=== PATIENT | female | born 1955 | race Caucasian/White ===

== ENCOUNTER 2017-09-03 10:48 | Inpatient (IN) | payer OTHER ==
[~2017-09-03] VITALS: Ht 170.2 cm; Wt 60.1 kg
[~2017-09-03 10:48] MED LIST: ALBU8.5H8 INH; ALPR0.254 PO; FLUT1AER INH; GUAI200T3 PO; IPRA4AER IH; LEVO500T47 PO; METH4TAB6 PO; OLME1TAB25 PO; PRED20TA PO
[2017-09-03] MEDS ORDERED: SODIUM CHLORIDE FLUSH 10ML SYR IVF ONE (11:30)
[2017-09-03 11:38] LABS: BASOPHILS # (AUTO) 0.03 x10^3/uL (0-0.1); BASOPHILS % (AUTO) 0 % (0-1); EOSINOPHILS # (AUTO) 0.02 x10^3/uL (0-0.4); EOSINOPHILS % (AUTO) 0 % (1-7); LYMPHOCYTES # (AUTO) 0.68 x10^3/uL (1-3.4); LYMPHOCYTES % (AUTO) 6 % (22-44); MD NO; MEAN CORPUSCULAR HEMOGLOBIN 34.6 pg (27.0-34.8); MEAN CORPUSCULAR HGB CONC 34.3 g/dL (32.4-35.8); MEAN CORPUSCULAR VOLUME 100.9 fL (80-100); MEAN PLATELET VOLUME 7.3 fL (7.4-10.4); MONOCYTES # (AUTO) 0.92 x10^3/uL (0.2-0.8); MONOCYTES % (AUTO) 9 % (2-9); NEUTROPHILS # (AUTO) 9.01 x10^3/uL (1.8-6.8); NEUTROPHILS % (AUTO) 85 % (42-75); PLATELET COUNT 309 x10^3/uL (130-400); RED BLOOD COUNT 4.37 x10^6/uL (3.82-5.3); RED CELL DISTRIBUTION WIDTH 12.6 % (9.6-15.2)
[2017-09-03] MEDS ORDERED: ALBUTEROL/IPRATROPIUM 2.5MG/0.5MG, 3 ML ONE ×2 (11:40→14:03)
[2017-09-03] MEDS ORDERED: ALBU18HF INH (11:46)
[2017-09-03 11:47] LABS: CALCIUM 8.5 mg/dL (8.5-10.1); CHLORIDE 87 mmol/L (98-107)
[2017-09-03] MEDS ORDERED: OLME1TAB25 PO (11:47)
[2017-09-03] MEDS ORDERED: FLUO20CA8 PO (11:50)
[2017-09-03 11:53] LABS: ALANINE AMINOTRANSFERASE 19 U/L (12-78); ALKALINE PHOSPHATASE 79 U/L (45-117); ANION GAP 5 mmol/L (5-15); BILIRUBIN,TOTAL 0.8 mg/dL (0.2-1.0); CREATININE 0.41 mg/dL (0.55-1.02); TOTAL PROTEIN 7.1 g/dL (6.4-8.2); TROPONIN I < 0.015 ng/mL (0.000-0.045)
[2017-09-03] MEDS ORDERED: LABETALOL 5MG/ML, 20ML IVPush PRN (13:30)
[2017-09-03] MEDS ORDERED: ONDANSETRON ODT 4 MG PO PRN (13:30)
[2017-09-03] MEDS ORDERED: POLYETHYLENE GLYCOL 17 GM PACKET PO PRN (13:30)
[2017-09-03] MEDS ORDERED: ONDANSETRON 2MG/ML, 2ML IVPush PRN (13:30)
[2017-09-03 13:58] LABS: PARTIAL THROMBOPLASTIN TIME 32 Seconds (25-31); PROTHROMBIN TIME 10.3 Seconds (9.6-11.5)
[2017-09-03] MEDS ORDERED: ALBUTEROL SULFATE 2.5 MG/3 ML HHN PRN (14:00)
[2017-09-03 14:01] LABS: D-DIMER < 0.19 ug/mlFEU (0.00-0.52)
[2017-09-03 14:20] LABS: FOLATE LEVEL 11.1 ng/mL (3.1-17.5); FREE T4 (FREE THYROXINE) 1.36 ng/dL (0.76-1.46); THYROID STIMULATING HORMONE 0.802 mIU/L (0.358-3.740)
[2017-09-03 14:21] VITALS: BP 129/65
[2017-09-03] MEDS: SODIUM CHLORIDE 0.9% 1,000 ML IV SCH ×2 (14:47→22:52)
[2017-09-03] MEDS: methylPREDNISolone SOD SUCC 125 MG/2 ML IVPush SCH ×2 (14:48→20:03)
[2017-09-03] MEDS: DOXYCYCLINE 100MG TABLET PO SCH ×2 (14:48→20:03)
[2017-09-03] MEDS: ENOXAPARIN 40 MG/0.4 ML SQ SCH (14:49)
[2017-09-03 19:00] VITALS: BP 112/60
[2017-09-03] MEDS: ALBUTEROL/IPRATROPIUM 2.5MG/0.5MG, 3 ML NPPB SCH (20:00)
[2017-09-03] MEDS: NICOTINE 21 MG/24 HR PATCH.TD24 TD SCH (20:03)
[2017-09-04 01:05] VITALS: BP 150/73
[2017-09-04] MEDS: methylPREDNISolone SOD SUCC 125 MG/2 ML IVPush SCH ×4 (01:45→19:46)
[2017-09-04 06:03] LABS: BASOPHILS % (AUTO) 0 % (0-1); EOSINOPHILS % (AUTO) 0 % (1-7); LYMPHOCYTES # (AUTO) 0.21 x10^3/uL (1-3.4); LYMPHOCYTES % (AUTO) 9 % (22-44); MD NO; MEAN CORPUSCULAR HEMOGLOBIN 33.8 pg (27.0-34.8); MEAN CORPUSCULAR HGB CONC 33.5 g/dL (32.4-35.8); MEAN CORPUSCULAR VOLUME 100.6 fL (80-100); MEAN PLATELET VOLUME 7.5 fL (7.4-10.4); MONOCYTES # (AUTO) 0.09 x10^3/uL (0.2-0.8); MONOCYTES % (AUTO) 4 % (2-9); NEUTROPHILS # (AUTO) 1.95 x10^3/uL (1.8-6.8); NEUTROPHILS % (AUTO) 87 % (42-75); PLATELET COUNT 242 x10^3/uL (130-400); RED BLOOD COUNT 4.07 x10^6/uL (3.82-5.3); RED CELL DISTRIBUTION WIDTH 12.9 % (9.6-15.2)
[2017-09-04 06:05] LABS: ALANINE AMINOTRANSFERASE 18 U/L (12-78); ALBUMIN 3.4 g/dL (3.4-5.0); ANION GAP 6 mmol/L (5-15); CALCIUM 8.2 mg/dL (8.5-10.1); CHLORIDE 90 mmol/L (98-107); CREATININE 0.36 mg/dL (0.55-1.02)
[2017-09-04 06:07] LABS: ALKALINE PHOSPHATASE 64 U/L (45-117); BILIRUBIN,TOTAL 0.4 mg/dL (0.2-1.0); TOTAL PROTEIN 6.1 g/dL (6.4-8.2)
[2017-09-04] MEDS: SODIUM CHLORIDE 0.9% 1,000 ML IV SCH (06:24)
[2017-09-04] MEDS: ALBUTEROL/IPRATROPIUM 2.5MG/0.5MG, 3 ML NPPB SCH ×4 (07:00→19:29)
[2017-09-04 07:49] VITALS: BP 127/69
[2017-09-04] MEDS ORDERED: POTASSIUM CHLORIDE 20 MEQ TAB.ER.PRT PO ONE (08:30)
[2017-09-04] MEDS ORDERED: CYANOCOBALAMIN 1,000 MCG/ML, 1ML IM ONE (08:30)
[2017-09-04] MEDS: DOXYCYCLINE 100MG TABLET PO SCH ×2 (08:35→19:46)
[2017-09-04] MEDS: THIAMINE 100MG TABLET PO SCH (08:35)
[2017-09-04] MEDS: FLUOXETINE HCL 20 MG CAPSULE PO SCH (08:36)
[2017-09-04] MEDS: FOLIC ACID 1 MG TABLET PO SCH (08:36)
[2017-09-04] MEDS: NICOTINE 21 MG/24 HR PATCH.TD24 TD SCH (08:36)
[2017-09-04] MEDS: SENNA/DOCUSATE TABLET PO SCH (09:00)
[2017-09-04 12:19] VITALS: BP 131/72
[2017-09-04] MEDS: ENOXAPARIN 40 MG/0.4 ML SQ SCH (13:30)
[2017-09-04 15:44] LABS: ANION GAP 5 mmol/L (5-15); CALCIUM 8.6 mg/dL (8.5-10.1); CHLORIDE 90 mmol/L (98-107); CREATININE 0.66 mg/dL (0.55-1.02)
[2017-09-04 18:48] VITALS: BP 125/68
[2017-09-05 00:57] VITALS: BP 129/72
[2017-09-05] MEDS: methylPREDNISolone SOD SUCC 125 MG/2 ML IVPush SCH ×4 (02:11→20:45)
[2017-09-05 05:48] LABS: BASOPHILS # (AUTO) 0.01 x10^3/uL (0-0.1); BASOPHILS % (AUTO) 0 % (0-1); EOSINOPHILS % (AUTO) 0 % (1-7); LYMPHOCYTES # (AUTO) 0.21 x10^3/uL (1-3.4); LYMPHOCYTES % (AUTO) 3 % (22-44); MD NO; MEAN CORPUSCULAR HEMOGLOBIN 33.8 pg (27.0-34.8); MEAN CORPUSCULAR HGB CONC 33.6 g/dL (32.4-35.8); MEAN CORPUSCULAR VOLUME 100.4 fL (80-100); MEAN PLATELET VOLUME 7.6 fL (7.4-10.4); MONOCYTES # (AUTO) 0.51 x10^3/uL (0.2-0.8); MONOCYTES % (AUTO) 7 % (2-9); NEUTROPHILS % (AUTO) 90 % (42-75); PLATELET COUNT 229 x10^3/uL (130-400); RED CELL DISTRIBUTION WIDTH 12.7 % (9.6-15.2)
[2017-09-05 05:52] LABS: ALBUMIN 3.5 g/dL (3.4-5.0); ANION GAP 4 mmol/L (5-15); CALCIUM 8.9 mg/dL (8.5-10.1); CHLORIDE 96 mmol/L (98-107); CREATININE 0.41 mg/dL (0.55-1.02)
[2017-09-05] MEDS: ALBUTEROL/IPRATROPIUM 2.5MG/0.5MG, 3 ML NPPB SCH ×4 (06:39→20:00)
[2017-09-05 07:29] VITALS: BP 144/80
[2017-09-05] MEDS: FLUOXETINE HCL 20 MG CAPSULE PO SCH (08:38)
[2017-09-05] MEDS: DOXYCYCLINE 100MG TABLET PO SCH ×2 (08:39→20:45)
[2017-09-05] MEDS: THIAMINE 100MG TABLET PO SCH (08:39)
[2017-09-05] MEDS: NICOTINE 21 MG/24 HR PATCH.TD24 TD SCH (08:39)
[2017-09-05] MEDS: FOLIC ACID 1 MG TABLET PO SCH (08:39)
[2017-09-05] MEDS: SENNA/DOCUSATE TABLET PO SCH (08:51)
[2017-09-05 13:20] VITALS: BP 144/75
[2017-09-05] MEDS: ENOXAPARIN 40 MG/0.4 ML SQ SCH (13:30)
[2017-09-05] MEDS ORDERED: IBUPROFEN 200 MG TABLET PO PRN (17:30)
[2017-09-05 19:40] VITALS: BP 149/78
[2017-09-06 00:15] VITALS: BP 142/73
[2017-09-06] MEDS: methylPREDNISolone SOD SUCC 125 MG/2 ML IVPush SCH ×2 (02:40→08:17)
[2017-09-06 05:10] LABS: BASOPHILS % (AUTO) 0 % (0-1); EOSINOPHILS % (AUTO) 0 % (1-7); LYMPHOCYTES # (AUTO) 0.25 x10^3/uL (1-3.4); LYMPHOCYTES % (AUTO) 4 % (22-44); MD NO; MEAN CORPUSCULAR HEMOGLOBIN 33.8 pg (27.0-34.8); MEAN CORPUSCULAR HGB CONC 33.4 g/dL (32.4-35.8); MEAN CORPUSCULAR VOLUME 101.4 fL (80-100); MEAN PLATELET VOLUME 7.3 fL (7.4-10.4); MONOCYTES # (AUTO) 0.45 x10^3/uL (0.2-0.8); MONOCYTES % (AUTO) 7 % (2-9); NEUTROPHILS % (AUTO) 90 % (42-75); PLATELET COUNT 233 x10^3/uL (130-400); RED BLOOD COUNT 4.04 x10^6/uL (3.82-5.3); RED CELL DISTRIBUTION WIDTH 12.7 % (9.6-15.2)
[2017-09-06 05:14] LABS: ALBUMIN 3.4 g/dL (3.4-5.0); ANION GAP 2 mmol/L (5-15); CALCIUM 8.4 mg/dL (8.5-10.1); CHLORIDE 95 mmol/L (98-107)
[2017-09-06 05:15] LABS: CREATININE 0.46 mg/dL (0.55-1.02)
[2017-09-06] MEDS: ALBUTEROL/IPRATROPIUM 2.5MG/0.5MG, 3 ML NPPB SCH ×3 (06:35→14:26)
[2017-09-06 07:41] VITALS: BP 145/75
[2017-09-06] MEDS: FLUOXETINE HCL 20 MG CAPSULE PO SCH (08:15)
[2017-09-06] MEDS: SENNA/DOCUSATE TABLET PO SCH (08:16)
[2017-09-06] MEDS: THIAMINE 100MG TABLET PO SCH (08:16)
[2017-09-06] MEDS: DOXYCYCLINE 100MG TABLET PO SCH (08:16)
[2017-09-06] MEDS: FOLIC ACID 1 MG TABLET PO SCH (08:17)
[2017-09-06] MEDS: NICOTINE 21 MG/24 HR PATCH.TD24 TD SCH (08:18)
[2017-09-06] MEDS: ENOXAPARIN 40 MG/0.4 ML SQ SCH (13:30)
[2017-09-06 14:19] VITALS: BP 151/80
[2017-09-06] MEDS ORDERED: DOXY100T PO (14:22)
[2017-09-06] MEDS ORDERED: OLME40TA12 PO (14:23)
[2017-09-06] MEDS ORDERED: CYAN1TAB29 PO (15:47)
[2017-09-06] MEDS ORDERED: PRED10TA PO (15:54)
[2017-09-06] MEDS ORDERED: NICO-486 TD (15:55)
== END 2017-09-06 16:32 | disposition home or self-care (01) | DRG 189 ==
LOC: ED 12:57 → EDIP 12:58 → ED 13:09 → 3NE 14:06 → DCLOUNGE 09-06 16:10
PROVIDERS: ADMIT Hospitalist; ATTEND Hospitalist
DX: J96.21 Acute and chronic respiratory failure with hypoxia (principal); E87.1 Hypo-osmolality and hyponatremia; I50.30 Unspecified diastolic (congestive) heart failure; J44.1 Chronic obstructive pulmonary disease with (acute) exacerbation; D72.819 Decreased white blood cell count, unspecified; D75.89 Other specified diseases of blood and blood-forming organs; E53.8 Deficiency of other specified B group vitamins; F10.10 Alcohol abuse, uncomplicated; F17.210 Nicotine dependence, cigarettes, uncomplicated; I11.0 Hypertensive heart disease with heart failure; Z66 Do not resuscitate; Z82.3 Family history of stroke; Z83.3 Family history of diabetes mellitus; Z85.828 Personal history of other malignant neoplasm of skin; Z99.81 Dependence on supplemental oxygen
CPT/HCPCS: 36415; 71045; 80048; 80053; 82040; 82607; 82746; 83735; 83880; 84100; 84439; 84443; 84484; 85025; 85379; 85610; 85730; 87040; 87205; 93005; 93306; 94640; 99285; J1650; J7620; J2930; J3420; J7030; J7512

== ENCOUNTER 2017-10-12 02:56 | Inpatient (IN) | payer OTHER ==
[~2017-10-12] VITALS: Ht 172.7 cm; Wt 62.0 kg
[~2017-10-12 02:56] MED LIST changes: +ALBU18HF INH; +CYAN1TAB29 PO; +DOXY100T PO; +FLUO20CA8 PO; +NICO-486 TD; +OLME40TA12 PO; +PRED10TA PO
[2017-10-12] MEDS ORDERED: ALBUTEROL/IPRATROPIUM 2.5MG/0.5MG, 3 ML ONE (03:06)
[2017-10-12] MEDS ORDERED: SULF-169 PO (03:07)
[2017-10-12] MEDS ORDERED: TIOT4MIS3 INH (03:09)
[2017-10-12 03:24] LABS: BASOPHILS # (AUTO) 0.05 x10^3/uL (0-0.1); BASOPHILS % (AUTO) 1 % (0-1); EOSINOPHILS # (AUTO) 0.01 x10^3/uL (0-0.4); EOSINOPHILS % (AUTO) 0 % (1-7); LYMPHOCYTES # (AUTO) 0.85 x10^3/uL (1-3.4); LYMPHOCYTES % (AUTO) 10 % (22-44); MD NO; MEAN CORPUSCULAR HEMOGLOBIN 34.5 pg (27.0-34.8); MEAN CORPUSCULAR HGB CONC 34.3 g/dL (32.4-35.8); MEAN CORPUSCULAR VOLUME 100.6 fL (80-100); MEAN PLATELET VOLUME 7.3 fL (7.4-10.4); MONOCYTES # (AUTO) 0.72 x10^3/uL (0.2-0.8); MONOCYTES % (AUTO) 8 % (2-9); NEUTROPHILS # (AUTO) 7.16 x10^3/uL (1.8-6.8); NEUTROPHILS % (AUTO) 82 % (42-75); PLATELET COUNT 317 x10^3/uL (130-400); RED BLOOD COUNT 3.98 x10^6/uL (3.82-5.3); RED CELL DISTRIBUTION WIDTH 13.4 % (9.6-15.2)
[2017-10-12] MEDS ORDERED: ALBUTEROL 0.5%, 20ML NPPB SCH (03:30)
[2017-10-12] MEDS ORDERED: SODIUM CHLORIDE FLUSH 10ML SYR IVF ONE (03:30)
[2017-10-12 03:32] LABS: ALBUMIN 3.7 g/dL (3.4-5.0); ANION GAP 9 mmol/L (5-15); CALCIUM 7.9 mg/dL (8.5-10.1); CHLORIDE 85 mmol/L (98-107); CREATININE 0.36 mg/dL (0.55-1.02)
[2017-10-12 03:36] LABS: TROPONIN I < 0.015 ng/mL (0.000-0.045)
[2017-10-12] MEDS ORDERED: SODIUM CHLORIDE 0.9% 1,000 ML IV ONE (03:40)
[2017-10-12] MEDS ORDERED: SODIUM CHLORIDE 0.9% 1,000ML IVBOLUS ONE (04:00)
[2017-10-12 04:58] VITALS: BP 144/78
[2017-10-12 05:38] VITALS: BP 144/8
[2017-10-12] MEDS ORDERED: POLYETHYLENE GLYCOL 17 GM PACKET PO PRN (06:00)
[2017-10-12] MEDS ORDERED: BISACODYL 10 MG SUPP PR PRN (06:00)
[2017-10-12] MEDS ORDERED: PROMETHAZINE 25 MG/ML, 1ML IM PRN (06:00)
[2017-10-12] MEDS ORDERED: ACETAMINOPHEN 325 MG TABLET PO PRN (06:00)
[2017-10-12] MEDS ORDERED: ONDANSETRON ODT 4 MG PO PRN (06:00)
[2017-10-12] MEDS ORDERED: ALBUTEROL/IPRATROPIUM 2.5MG/0.5MG, 3 ML HHN SCH (06:00)
[2017-10-12] MEDS ORDERED: DOCUSATE 100 MG CAPSULE PO PRN (06:00)
[2017-10-12] MEDS ORDERED: morphine SULFATE 10 MG/ML, 1ML IVPush PRN (06:00)
[2017-10-12] MEDS ORDERED: ENALAPRILAT 1.25 MG/ML, 2ML IVPush PRN (06:00)
[2017-10-12] MEDS ORDERED: hydrALAzine 20 MG/ML, 1ML IVPush PRN (06:00)
[2017-10-12] MEDS ORDERED: ONDANSETRON 2MG/ML, 2ML IVPush PRN (06:00)
[2017-10-12] MEDS ORDERED: OXYcodone IR 5MG TABLET PO PRN (06:00)
[2017-10-12] MEDS: HEPARIN 5,000 UNITS/ML, 1ML SQ SCH ×3 (06:22→21:02)
[2017-10-12] MEDS: SODIUM CHLORIDE 0.9% 1,000 ML IV SCH ×2 (06:22→20:59)
[2017-10-12] MEDS: NICOTINE 14MG/24 HR PATCH.TD24 TD SCH (06:22)
[2017-10-12] MEDS: methylPREDNISolone SOD SUCC 125 MG/2 ML IVPush SCH ×3 (06:22→21:01)
[2017-10-12 06:47] LABS: HEMOGLOBIN A1C 5.2 % (4.2-6.3)
[2017-10-12 06:49] LABS: FREE T4 (FREE THYROXINE) 1.02 ng/dL (0.76-1.46); THYROID STIMULATING HORMONE 0.81 mIU/L (0.358-3.740)
[2017-10-12 06:57] VITALS: BP 171/95
[2017-10-12 07:18] LABS: MICROSCOPIC NOT IND
[2017-10-12 07:20] LABS: CULTURE INDICATED? NO
[2017-10-12] MEDS: VALSARTAN 320 MG TABLET PO SCH (07:38)
[2017-10-12] MEDS ORDERED: FAMOTIDINE 20 MG/2 ML IVPush SCH (09:00)
[2017-10-12] MEDS: FLUOXETINE HCL 20 MG CAPSULE PO SCH (09:10)
[2017-10-12] MEDS: DOXYCYCLINE 100MG TABLET PO SCH ×2 (09:10→21:01)
[2017-10-12 09:24] VITALS: BP 144/74
[2017-10-12] MEDS ORDERED: ERGOCALCIFEROL 50,000 UNIT CAPSULE PO SCH (09:30)
[2017-10-12] MEDS: ALBUTEROL/IPRATROPIUM 2.5MG/0.5MG, 3 ML HHN SCH ×5 (10:00→23:26)
[2017-10-12] MEDS: FLUTICASONE/VILANTEROL 200-25MCG/INH INH SCH (12:50)
[2017-10-12 14:10] VITALS: BP 131/72
[2017-10-12 19:59] VITALS: BP 161/80
[2017-10-12] MEDS: FAMOTIDINE 20 MG TABLET PO SCH (21:01)
[2017-10-13 01:18] VITALS: BP 156/78
[2017-10-13] MEDS: methylPREDNISolone SOD SUCC 125 MG/2 ML IVPush SCH ×4 (03:38→21:39)
[2017-10-13 06:02] LABS: CHLORIDE 93 mmol/L (98-107)
[2017-10-13] MEDS: NICOTINE 14MG/24 HR PATCH.TD24 TD SCH (06:06)
[2017-10-13] MEDS: HEPARIN 5,000 UNITS/ML, 1ML SQ SCH ×3 (06:07→21:40)
[2017-10-13 06:12] LABS: ALANINE AMINOTRANSFERASE 22 U/L (12-78); ALBUMIN 3.3 g/dL (3.4-5.0); ALKALINE PHOSPHATASE 76 U/L (45-117); ANION GAP 11 mmol/L (5-15); BILIRUBIN,TOTAL 0.4 mg/dL (0.2-1.0); CALCIUM 8.1 mg/dL (8.5-10.1); CHOL/HDL RATIO 1.6; CHOLESTEROL, TOTAL 204 mg/dL (140-239); CREATININE 0.24 mg/dL (0.55-1.02); HDL CHOL % 64 % (28-40); HDL CHOLESTEROL (DIRECT) 130 mg/dL (40-60); LDL CHOLESTEROL,CALCULATED 63 mg/dL (54-169); LDL/HDL RATIO 0.5 (0.5-3.0); TOTAL PROTEIN 6.2 g/dL (6.4-8.2); TRIGLYCERIDES 55 mg/dL (50-200); VLDL CHOLESTEROL 11 mg/dL (0-25)
[2017-10-13 06:15] LABS: BASOPHILS # (AUTO) 0.01 x10^3/uL (0-0.1); BASOPHILS % (AUTO) 0 % (0-1); EOSINOPHILS % (AUTO) 0 % (1-7); LYMPHOCYTES # (AUTO) 0.19 x10^3/uL (1-3.4); LYMPHOCYTES % (AUTO) 4 % (22-44); MD NO; MEAN CORPUSCULAR HGB CONC 34.5 g/dL (32.4-35.8); MEAN CORPUSCULAR VOLUME 98.7 fL (80-100); MEAN PLATELET VOLUME 7.5 fL (7.4-10.4); MONOCYTES # (AUTO) 0.33 x10^3/uL (0.2-0.8); MONOCYTES % (AUTO) 7 % (2-9); NEUTROPHILS # (AUTO) 4.06 x10^3/uL (1.8-6.8); NEUTROPHILS % (AUTO) 89 % (42-75); PLATELET COUNT 258 x10^3/uL (130-400); RED BLOOD COUNT 3.56 x10^6/uL (3.82-5.3); RED CELL DISTRIBUTION WIDTH 13.8 % (9.6-15.2)
[2017-10-13] MEDS: ALBUTEROL/IPRATROPIUM 2.5MG/0.5MG, 3 ML HHN SCH ×5 (07:04→22:00)
[2017-10-13 08:00] VITALS: BP 124/70
[2017-10-13] MEDS: FLUTICASONE/VILANTEROL 200-25MCG/INH INH SCH (10:09)
[2017-10-13] MEDS: VALSARTAN 320 MG TABLET PO SCH (10:10)
[2017-10-13] MEDS: DOXYCYCLINE 100MG TABLET PO SCH ×2 (10:10→21:39)
[2017-10-13] MEDS: FAMOTIDINE 20 MG TABLET PO SCH ×2 (10:11→21:39)
[2017-10-13] MEDS: FLUOXETINE HCL 20 MG CAPSULE PO SCH (10:11)
[2017-10-13 14:00] VITALS: BP 159/80
[2017-10-13 19:43] VITALS: BP 136/74
[2017-10-14 02:55] VITALS: BP 159/95
[2017-10-14] MEDS: methylPREDNISolone SOD SUCC 125 MG/2 ML IVPush SCH ×4 (03:05→20:30)
[2017-10-14 06:32] VITALS: BP 155/76
[2017-10-14] MEDS: HEPARIN 5,000 UNITS/ML, 1ML SQ SCH ×3 (06:32→21:54)
[2017-10-14] MEDS: NICOTINE 14MG/24 HR PATCH.TD24 TD SCH (06:36)
[2017-10-14] MEDS: ALBUTEROL/IPRATROPIUM 2.5MG/0.5MG, 3 ML HHN SCH ×5 (07:29→23:20)
[2017-10-14] MEDS: DOXYCYCLINE 100MG TABLET PO SCH ×2 (08:38→20:30)
[2017-10-14] MEDS: VALSARTAN 320 MG TABLET PO SCH (08:38)
[2017-10-14] MEDS: FLUOXETINE HCL 20 MG CAPSULE PO SCH (08:38)
[2017-10-14] MEDS: FAMOTIDINE 20 MG TABLET PO SCH ×2 (08:39→20:30)
[2017-10-14] MEDS: FLUTICASONE/VILANTEROL 200-25MCG/INH INH SCH (08:43)
[2017-10-14] MEDS ORDERED: DOXYCYCLINE 100 MG in DEXTROSE 5% 250 ML IV SCH (11:30)
[2017-10-14 13:30] VITALS: BP 123/71
[2017-10-14 19:53] VITALS: BP 147/74
[2017-10-14] MEDS: LORazepam 2 MG/ML, 1ML IVPush PRN (20:30)
[2017-10-15 01:12] VITALS: BP 144/79
[2017-10-15] MEDS: methylPREDNISolone SOD SUCC 125 MG/2 ML IVPush SCH ×4 (02:54→19:56)
[2017-10-15] MEDS: NICOTINE 14MG/24 HR PATCH.TD24 TD SCH (05:42)
[2017-10-15] MEDS: HEPARIN 5,000 UNITS/ML, 1ML SQ SCH ×3 (05:43→22:30)
[2017-10-15] MEDS: ALBUTEROL/IPRATROPIUM 2.5MG/0.5MG, 3 ML HHN SCH ×5 (07:10→22:16)
[2017-10-15 07:33] VITALS: BP 138/83
[2017-10-15] MEDS: DOXYCYCLINE 100MG TABLET PO SCH ×2 (07:33→19:56)
[2017-10-15] MEDS: FAMOTIDINE 20 MG TABLET PO SCH ×2 (07:33→19:56)
[2017-10-15] MEDS: FLUOXETINE HCL 20 MG CAPSULE PO SCH (07:33)
[2017-10-15] MEDS: FLUTICASONE/VILANTEROL 200-25MCG/INH INH SCH (07:33)
[2017-10-15] MEDS: VALSARTAN 320 MG TABLET PO SCH (07:33)
[2017-10-15] MEDS: LORazepam 2 MG/ML, 1ML IVPush PRN ×2 (07:34→19:56)
[2017-10-15 14:00] VITALS: BP 156/76
[2017-10-15 20:42] VITALS: BP 131/77
[2017-10-16 02:44] VITALS: BP 121/81
[2017-10-16] MEDS: methylPREDNISolone SOD SUCC 125 MG/2 ML IVPush SCH ×2 (02:56→08:10)
[2017-10-16] MEDS: HEPARIN 5,000 UNITS/ML, 1ML SQ SCH (05:39)
[2017-10-16] MEDS: NICOTINE 14MG/24 HR PATCH.TD24 TD SCH (05:39)
[2017-10-16] MEDS: ALBUTEROL/IPRATROPIUM 2.5MG/0.5MG, 3 ML HHN SCH ×2 (06:00→10:00)
[2017-10-16] MEDS: LORazepam 2 MG/ML, 1ML IVPush PRN (06:41)
[2017-10-16 08:07] VITALS: BP 119/78
[2017-10-16] MEDS: DOXYCYCLINE 100MG TABLET PO SCH (08:10)
[2017-10-16] MEDS: FAMOTIDINE 20 MG TABLET PO SCH (08:10)
[2017-10-16] MEDS: FLUTICASONE/VILANTEROL 200-25MCG/INH INH SCH (08:10)
[2017-10-16] MEDS: VALSARTAN 320 MG TABLET PO SCH (08:10)
[2017-10-16] MEDS: FLUOXETINE HCL 20 MG CAPSULE PO SCH (08:10)
[2017-10-16] MEDS ORDERED: PRED20TA PO (08:50)
[2017-10-16] MEDS ORDERED: DOXY100T PO (08:50)
[2017-10-16] MEDS ORDERED: GUAI12009 PO (08:51)
[2017-10-16 09:57] LABS: ANION GAP 6 mmol/L (5-15); CALCIUM 8.4 mg/dL (8.5-10.1); CHLORIDE 84 mmol/L (98-107)
[2017-10-16 09:58] LABS: CREATININE 0.47 mg/dL (0.55-1.02)
[2017-10-16] MEDS ORDERED: POTASSIUM CHLORIDE 20 MEQ TAB.ER.PRT PO ONE (11:30)
[2017-10-16] MEDS ORDERED: methylPREDNISolone SOD SUCC 125 MG/2 ML IVPush SCH (15:00)
== END 2017-10-16 12:47 | disposition home or self-care (01) | DRG 189 ==
LOC: ED 03:14 → EDIP 04:03 → 4WST 04:50 → DCLOUNGE 10-16 12:37
PROVIDERS: ADMIT Internal Medicine; ATTEND Internal Medicine
DX: J96.21 Acute and chronic respiratory failure with hypoxia (principal); E87.1 Hypo-osmolality and hyponatremia; J44.1 Chronic obstructive pulmonary disease with (acute) exacerbation; C44.90 Unspecified malignant neoplasm of skin, unspecified; F32.9 Major depressive disorder, single episode, unspecified; I10 Essential (primary) hypertension; Z82.3 Family history of stroke; Z83.3 Family history of diabetes mellitus; Z85.828 Personal history of other malignant neoplasm of skin; Z87.891 Personal history of nicotine dependence; Z99.81 Dependence on supplemental oxygen
CPT/HCPCS: 36415; 99285; J7620; S0028; 71045; 80048; 80053; 80061; 81003; 82040; 82306; 82607; 83036; 83735; 84439; 84443; 84484; 85025; 87070; 87205; 93005; 94640; J1644; J2060; J2930; J7030; J7512

== ENCOUNTER 2017-11-26 08:11 | Observation (INO) | payer OTHER ==
[~2017-11-26] VITALS: Ht 170.2 cm; Wt 60.2 kg
[~2017-11-26 08:11] MED LIST changes: +GUAI12009 PO; +SULF-169 PO; +TIOT4MIS3 INH
[2017-11-26 09:08] LABS: BASOPHILS # (AUTO) 0.03 x10^3/uL (0-0.1); BASOPHILS % (AUTO) 1 % (0-1); EOSINOPHILS # (AUTO) 0.03 x10^3/uL (0-0.4); EOSINOPHILS % (AUTO) 0 % (1-7); LYMPHOCYTES # (AUTO) 0.87 x10^3/uL (1-3.4); LYMPHOCYTES % (AUTO) 13 % (22-44); MD NO; MEAN CORPUSCULAR HGB CONC 33.9 g/dL (32.4-35.8); MEAN CORPUSCULAR VOLUME 100.6 fL (80-100); MEAN PLATELET VOLUME 7.2 fL (7.4-10.4); MONOCYTES # (AUTO) 0.61 x10^3/uL (0.2-0.8); MONOCYTES % (AUTO) 9 % (2-9); NEUTROPHILS # (AUTO) 5.41 x10^3/uL (1.8-6.8); NEUTROPHILS % (AUTO) 78 % (42-75); PLATELET COUNT 337 x10^3/uL (130-400); RED BLOOD COUNT 3.78 x10^6/uL (3.82-5.3); RED CELL DISTRIBUTION WIDTH 14.3 % (9.6-15.2)
[2017-11-26 09:17] LABS: CALCIUM 8.7 mg/dL (8.5-10.1); CHLORIDE 75 mmol/L (98-107); CREATININE 0.29 mg/dL (0.55-1.02)
[2017-11-26 09:25] LABS: ANION GAP 10 mmol/L (5-15)
[2017-11-26] MEDS ORDERED: SODIUM CHLORIDE 0.9% 1,000 ML IV SCH (09:30)
[2017-11-26] MEDS ORDERED: ALBUTEROL/IPRATROPIUM 2.5MG/0.5MG, 3 ML ONE (09:51)
[2017-11-26] MEDS: ALBUTEROL/IPRATROPIUM 2.5MG/0.5MG, 3 ML NPPB SCH ×3 (09:58→19:57)
[2017-11-26] MEDS ORDERED: ALBUTEROL/IPRATROPIUM 2.5MG/0.5MG, 3 ML NEB ONE (10:00)
[2017-11-26] MEDS ORDERED: HYDR25TA6 PO (10:32)
[2017-11-26] MEDS ORDERED: PROMETHAZINE 25 MG/ML, 1ML IM PRN (11:00)
[2017-11-26] MEDS ORDERED: ACETAMINOPHEN 325 MG TABLET PO PRN (11:00)
[2017-11-26 12:03] VITALS: BP 133/71
[2017-11-26] MEDS: ENOXAPARIN 40 MG/0.4 ML SQ SCH (12:54)
[2017-11-26] MEDS: SODIUM CHLORIDE 0.9% 1,000 ML IV SCH (12:54)
[2017-11-26] MEDS: NICOTINE 21 MG/24 HR PATCH.TD24 TD SCH (12:54)
[2017-11-26] MEDS: GUAIFENESIN ER 600 MG TABLET PO SCH (12:54)
[2017-11-26] MEDS: CARVEDILOL 3.125 MG TABLET PO SCH (17:29)
[2017-11-26 17:35] VITALS: BP 133/71
[2017-11-26 19:30] VITALS: BP 109/67
[2017-11-27 00:04] VITALS: BP 119/69
[2017-11-27] MEDS: GUAIFENESIN ER 600 MG TABLET PO SCH ×2 (01:19→12:28)
[2017-11-27] MEDS: SODIUM CHLORIDE 0.9% 1,000 ML IV SCH ×2 (04:15→19:35)
[2017-11-27 05:23] VITALS: BP 118/66
[2017-11-27] MEDS: CARVEDILOL 3.125 MG TABLET PO SCH ×2 (05:26→17:26)
[2017-11-27 06:06] LABS: ANION GAP 7 mmol/L (5-15); CALCIUM 8.3 mg/dL (8.5-10.1); CHLORIDE 86 mmol/L (98-107)
[2017-11-27 06:07] LABS: CREATININE 0.29 mg/dL (0.55-1.02)
[2017-11-27] MEDS: ALBUTEROL/IPRATROPIUM 2.5MG/0.5MG, 3 ML NPPB SCH ×4 (06:40→19:13)
[2017-11-27 06:55] VITALS: BP 128/58
[2017-11-27] MEDS: CYANOCOBALAMIN 1,000 MCG TABLET PO SCH (07:37)
[2017-11-27] MEDS: FLUOXETINE HCL 20 MG CAPSULE PO SCH (07:38)
[2017-11-27] MEDS: LOSARTAN 50MG TABLET PO SCH (07:38)
[2017-11-27] MEDS: NICOTINE 21 MG/24 HR PATCH.TD24 TD SCH (11:25)
[2017-11-27] MEDS: ENOXAPARIN 40 MG/0.4 ML SQ SCH (11:25)
[2017-11-27 13:22] VITALS: BP 120/65
[2017-11-27] MEDS ORDERED: SODIUM CHLORIDE NASAL SPRAY 45ML BOTTLE NAS PRN (14:30)
[2017-11-27 17:25] VITALS: BP 116/67
[2017-11-27 18:58] VITALS: BP 122/68
[2017-11-28] MEDS: GUAIFENESIN ER 600 MG TABLET PO SCH ×2 (00:15→13:00)
[2017-11-28 00:24] VITALS: BP 115/67
[2017-11-28] MEDS: CARVEDILOL 3.125 MG TABLET PO SCH (04:29)
[2017-11-28 07:15] VITALS: BP 125/68
[2017-11-28] MEDS: ALBUTEROL/IPRATROPIUM 2.5MG/0.5MG, 3 ML NPPB SCH ×3 (07:15→11:55)
[2017-11-28 08:35] LABS: ANION GAP 5 mmol/L (5-15); CALCIUM 8.3 mg/dL (8.5-10.1); CHLORIDE 92 mmol/L (98-107); CREATININE 0.32 mg/dL (0.55-1.02)
[2017-11-28] MEDS: FLUOXETINE HCL 20 MG CAPSULE PO SCH (08:49)
[2017-11-28] MEDS: LOSARTAN 50MG TABLET PO SCH (08:49)
[2017-11-28] MEDS: CYANOCOBALAMIN 1,000 MCG TABLET PO SCH (08:49)
[2017-11-28] MEDS ORDERED: NICO-487 TD (10:25)
[2017-11-28] MEDS ORDERED: CARV3.1212 PO (10:25)
[2017-11-28] MEDS: ENOXAPARIN 40 MG/0.4 ML SQ SCH (11:00)
[2017-11-28] MEDS: NICOTINE 21 MG/24 HR PATCH.TD24 TD SCH (11:00)
[2017-11-28 12:30] VITALS: BP 143/74
[2017-11-28] MEDS: SODIUM CHLORIDE 0.9% 1,000 ML IV SCH (12:49)
== END 2017-11-28 13:35 | disposition home or self-care (01) ==
LOC: ED 09:48 → UNDOADMOB 10:10 → EDIP 10:10 → INTOOBSV 10:10 → UNDOADMOB 10:55 → 4EST 10:55 → EDIP 11:52 → 4EST 11:56 → DCLOUNGE 11-28 13:35
PROVIDERS: ADMIT Internal Medicine; ATTEND Internal Medicine
DX: J44.1 Chronic obstructive pulmonary disease with (acute) exacerbation (principal); E87.1 Hypo-osmolality and hyponatremia; F10.10 Alcohol abuse, uncomplicated; F17.210 Nicotine dependence, cigarettes, uncomplicated; G47.00 Insomnia, unspecified; Z82.3 Family history of stroke; Z83.3 Family history of diabetes mellitus; Z85.828 Personal history of other malignant neoplasm of skin; Z99.81 Dependence on supplemental oxygen; I11.0 Hypertensive heart disease with heart failure; I50.30 Unspecified diastolic (congestive) heart failure
CPT/HCPCS: 36415; 71045; 80048; 85025; 94640; 96372; 97161; 99285; G0378; J1650; J7030; J7512; J7620; 96360; 96361

== ENCOUNTER 2019-02-23 11:51 | Inpatient (IN) | payer OTHER ==
[~2019-02-23] VITALS: Ht 172.7 cm; Wt 73.9 kg
[~2019-02-23 11:51] MED LIST changes: +AMOX1TAB12 PO; +AZIT500T10 PO; +CARV3.1212 PO; -GUAI200T3 PO; +GUAI200T37 PO; +HYDR25TA6 PO; +NICO-487 TD
--- NOTE | 2019-02-23 12:06 | NUR ---
PT BIBA FROM HOME AFTER SOB AND INCREASED GAS X1 WEEK. PT STATES SHE IS ALSO OUT OF XANAX AND THAT MAY BE ADDING TO THE SOB. PT RECEIVED 1 ALBUTEROL AND 1 DUONEB BY [employer]. PT CONNECTED TO ALL MONITORS. VSS ON BASELINE 2LNC. PT HAS HX COPD AND ANXIETY. NO NEEDS EXPRESSED. CALL LIGHT WITHIN REACH. DR. CHAPMAN TO BS FOR ASSESSMENT. AWAITING ORDERS.
--- NOTE | 2019-02-23 12:22 | NUR ---
PT MEDICATED PER MAY. PT VERY THANKFUL. LAB DRAW COMPLETE. AWAITING XR AND RESULTS.
[2019-02-23 12:27] LABS: BASOPHILS # (AUTO) 0.03 x10^3/uL (0-0.1); BASOPHILS % (AUTO) 1 % (0-1); EOSINOPHILS # (AUTO) 0.08 x10^3/uL (0-0.4); EOSINOPHILS % (AUTO) 2 % (1-7); LYMPHOCYTES # (AUTO) 0.69 x10^3/uL (1-3.4); LYMPHOCYTES % (AUTO) 13 % (22-44); MD NO; MEAN CORPUSCULAR HEMOGLOBIN 33.7 pg (27.0-34.8); MEAN CORPUSCULAR HGB CONC 33.2 g/dL (32.4-35.8); MEAN CORPUSCULAR VOLUME 101.3 fL (80-100); MEAN PLATELET VOLUME 7.7 fL (7.4-10.4); MONOCYTES # (AUTO) 0.59 x10^3/uL (0.2-0.8); MONOCYTES % (AUTO) 11 % (2-9); NEUTROPHILS # (AUTO) 3.83 x10^3/uL (1.8-6.8); NEUTROPHILS % (AUTO) 73 % (42-75); PLATELET COUNT 345 x10^3/uL (130-400); RED BLOOD COUNT 3.34 x10^6/uL (3.82-5.3); RED CELL DISTRIBUTION WIDTH 13.1 % (9.6-15.2)
[2019-02-23 12:35] LABS: ALANINE AMINOTRANSFERASE 23 U/L (12-78); ALBUMIN 4.3 g/dL (3.4-5.0); ANION GAP 9 mmol/L (5-15); CALCIUM 9.1 mg/dL (8.5-10.1); CHLORIDE 81 mmol/L (98-107); CREATININE 0.56 mg/dL (0.55-1.02)
[2019-02-23 12:37] LABS: ALKALINE PHOSPHATASE 74 U/L (45-117); BILIRUBIN,TOTAL 0.7 mg/dL (0.2-1.0); TOTAL PROTEIN 7.5 g/dL (6.4-8.2)
[2019-02-23] MEDS ORDERED: SODIUM CHLORIDE 0.9% 1,000 ML IV ONE (12:51)
[2019-02-23] MEDS ORDERED: DOXYCYCLINE 100 MG in DEXTROSE 5% 250 ML IV ONE (13:00)
[2019-02-23] MEDS ORDERED: SODIUM CHLORIDE FLUSH 10ML SYR IVF ONE (13:00)
[2019-02-23] MEDS ORDERED: CEFTRIAXONE PMX 1GM/50ML 50 ML IVPB ONE (13:00)
[2019-02-23] MEDS ORDERED: CEFTRIAXONE PMX 1GM/50ML 50 ML ONE (13:18)
--- NOTE | 2019-02-23 13:24 | NUR ---
PT RESTING IN ROOM. VSS. ADDITIONAL LABS DRAWN. BC X2 DRAWN. IVF AND IVABX STARTED. PLAN TO ADMIT. DR. GOODMAN, HOSPITALIST, AT BS. AWAITING ROOM ASSIGNMENT.
[2019-02-23 13:39] LABS: % IRON SATURATION 36 % (20-55); IRON LEVEL 121 mcg/dL (50-170); TOTAL IRON BINDING CAPACITY 333 mcg/dL (250-450)
[2019-02-23] MEDS: SODIUM CHLORIDE 0.9% 1,000 ML IV SCH ×2 (14:00→22:00)
[2019-02-23] MEDS ORDERED: CHLORDIAZEPOXIDE 25 MG CAPSULE PO PRN ×3 (14:00)
[2019-02-23] MEDS ORDERED: CHLORDIAZEPOXIDE 10 MG CAPSULE PO PRN (14:00)
[2019-02-23] MEDS ORDERED: ALBUTEROL SULFATE 2.5 MG/3 ML NPPB SCH (14:00)
--- NOTE | 2019-02-23 14:29 | NUR ---
pt resting in room. vss. no needs expressed. awaitng room assignment.
[2019-02-23 16:11] LABS: MICROSCOPIC INDICATED
[2019-02-23 16:12] LABS: CULTURE INDICATED? YES
[2019-02-23 17:34] VITALS: BP 125/72
[2019-02-23 17:35] LABS: SODIUM,URINE RANDOM 25 mmol/L
[2019-02-23] MEDS: CARVEDILOL 3.125 MG TABLET PO SCH (17:47)
[2019-02-23] MEDS: ENOXAPARIN 40 MG/0.4 ML SQ SCH (17:47)
[2019-02-23 18:07] LABS: OSMOLALITY,URINE 183 mOsm/kg (500-850)
[2019-02-23 20:07] VITALS: BP 111/69
[2019-02-23] MEDS: ALBUTEROL/IPRATROPIUM 2.5MG/0.5MG, 3 ML HHN SCH (21:00)
[2019-02-24 00:55] VITALS: BP 93/50
[2019-02-24 02:03] LABS: BASOPHILS # (AUTO) 0.02 x10^3/uL (0-0.1); BASOPHILS % (AUTO) 0 % (0-1); EOSINOPHILS # (AUTO) 0.08 x10^3/uL (0-0.4); EOSINOPHILS % (AUTO) 2 % (1-7); LYMPHOCYTES # (AUTO) 0.69 x10^3/uL (1-3.4); LYMPHOCYTES % (AUTO) 14 % (22-44); MD NO; MEAN CORPUSCULAR HEMOGLOBIN 33.5 pg (27.0-34.8); MEAN CORPUSCULAR HGB CONC 33.2 g/dL (32.4-35.8); MEAN CORPUSCULAR VOLUME 101.1 fL (80-100); MEAN PLATELET VOLUME 7.6 fL (7.4-10.4); MONOCYTES # (AUTO) 0.62 x10^3/uL (0.2-0.8); MONOCYTES % (AUTO) 13 % (2-9); NEUTROPHILS # (AUTO) 3.52 x10^3/uL (1.8-6.8); NEUTROPHILS % (AUTO) 72 % (42-75); PLATELET COUNT 298 x10^3/uL (130-400); RED BLOOD COUNT 3.03 x10^6/uL (3.82-5.3); RED CELL DISTRIBUTION WIDTH 13.4 % (9.6-15.2)
[2019-02-24 02:15] LABS: ANION GAP 8 mmol/L (5-15); CALCIUM 8.4 mg/dL (8.5-10.1); CHLORIDE 91 mmol/L (98-107); CREATININE 0.49 mg/dL (0.55-1.02)
[2019-02-24] MEDS: ALBUTEROL/IPRATROPIUM 2.5MG/0.5MG, 3 ML HHN SCH ×4 (02:22→21:06)
[2019-02-24] MEDS: SODIUM CHLORIDE 0.9% 1,000 ML IV SCH (04:24)
[2019-02-24] MEDS: CARVEDILOL 3.125 MG TABLET PO SCH ×2 (06:18→18:16)
[2019-02-24 07:32] VITALS: BP 110/68
[2019-02-24 08:48] VITALS: BP 115/56
[2019-02-24] MEDS: TIOTROPIUM BR INH SCH (09:00)
[2019-02-24] MEDS: OLODATEROL HCL INH SCH (09:00)
[2019-02-24] MEDS: THIAMINE 100MG TABLET PO SCH (09:46)
[2019-02-24] MEDS: FLUOXETINE HCL 20 MG CAPSULE PO SCH (09:46)
[2019-02-24] MEDS: FOLIC ACID 1 MG TABLET PO SCH (09:46)
[2019-02-24] MEDS: LOSARTAN 50MG TABLET PO SCH (09:46)
[2019-02-24 13:06] VITALS: BP 95/56
[2019-02-24] MEDS ORDERED: POTASSIUM CHLORIDE 20 MEQ in SODIUM CHLORIDE 0.9% 250 ML IV ONE (15:30)
[2019-02-24] MEDS ORDERED: MAGNESIUM SULFATE PMX 2GM/50ML 50 ML IV ONE (15:30)
[2019-02-24] MEDS: CHOLECALCIFEROL 400 UNITS TABLET PO SCH (16:17)
[2019-02-24] MEDS: ENOXAPARIN 40 MG/0.4 ML SQ SCH (16:17)
[2019-02-24] MEDS: ASCORBIC ACID 500 MG TABLET PO SCH (16:17)
[2019-02-24 20:52] VITALS: BP 112/59
[2019-02-24] MEDS: CALCIUM CARBONATE 500 MG TAB.CHEW PO SCH (22:00)
[2019-02-25 01:43] VITALS: BP 108/69
[2019-02-25] MEDS: ALBUTEROL/IPRATROPIUM 2.5MG/0.5MG, 3 ML HHN SCH ×4 (03:28→21:15)
[2019-02-25] MEDS: CARVEDILOL 3.125 MG TABLET PO SCH ×2 (06:16→17:35)
[2019-02-25 06:25] LABS: BASOPHILS # (AUTO) 0.02 x10^3/uL (0-0.1); BASOPHILS % (AUTO) 1 % (0-1); EOSINOPHILS # (AUTO) 0.22 x10^3/uL (0-0.4); EOSINOPHILS % (AUTO) 7 % (1-7); LYMPHOCYTES # (AUTO) 0.79 x10^3/uL (1-3.4); LYMPHOCYTES % (AUTO) 25 % (22-44); MD NO; MEAN CORPUSCULAR HEMOGLOBIN 33.5 pg (27.0-34.8); MEAN CORPUSCULAR VOLUME 101.4 fL (80-100); MEAN PLATELET VOLUME 7.7 fL (7.4-10.4); MONOCYTES # (AUTO) 0.49 x10^3/uL (0.2-0.8); MONOCYTES % (AUTO) 16 % (2-9); NEUTROPHILS # (AUTO) 1.67 x10^3/uL (1.8-6.8); NEUTROPHILS % (AUTO) 52 % (42-75); PLATELET COUNT 273 x10^3/uL (130-400); RED BLOOD COUNT 2.64 x10^6/uL (3.82-5.3); RED CELL DISTRIBUTION WIDTH 13.6 % (9.6-15.2)
[2019-02-25 06:31] LABS: ALBUMIN 3.4 g/dL (3.4-5.0); ANION GAP 5 mmol/L (5-15); CALCIUM 8.2 mg/dL (8.5-10.1); CHLORIDE 99 mmol/L (98-107); CREATININE 0.45 mg/dL (0.55-1.02)
[2019-02-25 06:50] VITALS: BP 108/58
[2019-02-25] MEDS ORDERED: CALCIUM GLUCONATE 4.6 MEQ in SODIUM CHLORIDE 0.9% 50 ML IV ONE (07:30)
[2019-02-25] MEDS ORDERED: MAGNESIUM SULFATE PMX 2GM/50ML 50 ML IV ONE (07:30)
[2019-02-25] MEDS: CALCIUM CARBONATE 500 MG TAB.CHEW PO SCH ×3 (08:51→20:53)
[2019-02-25] MEDS: THIAMINE 100MG TABLET PO SCH (08:51)
[2019-02-25] MEDS: FLUOXETINE HCL 20 MG CAPSULE PO SCH (08:51)
[2019-02-25] MEDS: TIOTROPIUM BR INH SCH (08:52)
[2019-02-25] MEDS: MULTIVITS,STRESS FORMULA 1 TABLET PO SCH (08:52)
[2019-02-25] MEDS: LOSARTAN 50MG TABLET PO SCH (08:52)
[2019-02-25] MEDS: FOLIC ACID 1 MG TABLET PO SCH (08:52)
[2019-02-25] MEDS: ASCORBIC ACID 500 MG TABLET PO SCH ×2 (08:52→17:35)
[2019-02-25] MEDS: OLODATEROL HCL INH SCH (08:52)
[2019-02-25 12:42] VITALS: BP 127/64
[2019-02-25] MEDS: ENOXAPARIN 40 MG/0.4 ML SQ SCH (14:32)
[2019-02-25] MEDS: CHOLECALCIFEROL 400 UNITS TABLET PO SCH (17:35)
[2019-02-25 18:58] VITALS: BP 142/78
[2019-02-26 01:42] VITALS: BP 147/85
[2019-02-26] MEDS: ALBUTEROL/IPRATROPIUM 2.5MG/0.5MG, 3 ML HHN SCH ×3 (03:10→14:56)
[2019-02-26] MEDS: CARVEDILOL 3.125 MG TABLET PO SCH (06:30)
[2019-02-26 06:49] LABS: BASOPHILS # (AUTO) 0.02 x10^3/uL (0-0.1); BASOPHILS % (AUTO) 1 % (0-1); EOSINOPHILS # (AUTO) 0.24 x10^3/uL (0-0.4); EOSINOPHILS % (AUTO) 7 % (1-7); LYMPHOCYTES # (AUTO) 0.84 x10^3/uL (1-3.4); LYMPHOCYTES % (AUTO) 23 % (22-44); MD NO; MEAN CORPUSCULAR HEMOGLOBIN 33.6 pg (27.0-34.8); MEAN CORPUSCULAR HGB CONC 33.7 g/dL (32.4-35.8); MEAN CORPUSCULAR VOLUME 99.8 fL (80-100); MEAN PLATELET VOLUME 7.5 fL (7.4-10.4); MONOCYTES # (AUTO) 0.54 x10^3/uL (0.2-0.8); MONOCYTES % (AUTO) 14 % (2-9); NEUTROPHILS # (AUTO) 2.06 x10^3/uL (1.8-6.8); NEUTROPHILS % (AUTO) 56 % (42-75); PLATELET COUNT 273 x10^3/uL (130-400); RED BLOOD COUNT 2.95 x10^6/uL (3.82-5.3); RED CELL DISTRIBUTION WIDTH 13.3 % (9.6-15.2)
[2019-02-26 06:51] LABS: ALBUMIN 3.6 g/dL (3.4-5.0); CHLORIDE 97 mmol/L (98-107)
[2019-02-26 06:54] LABS: ANION GAP 8 mmol/L (5-15); CREATININE 0.45 mg/dL (0.55-1.02)
[2019-02-26 07:47] VITALS: BP 139/62
[2019-02-26] MEDS: CALCIUM CARBONATE 500 MG TAB.CHEW PO SCH (08:11)
[2019-02-26] MEDS: LOSARTAN 50MG TABLET PO SCH (08:12)
[2019-02-26] MEDS: MULTIVITS,STRESS FORMULA 1 TABLET PO SCH (08:12)
[2019-02-26] MEDS: ASCORBIC ACID 500 MG TABLET PO SCH (08:13)
[2019-02-26] MEDS: TIOTROPIUM BR INH SCH ×2 (08:14→09:00)
[2019-02-26] MEDS: THIAMINE 100MG TABLET PO SCH (08:14)
[2019-02-26] MEDS: OLODATEROL HCL INH SCH ×2 (08:14→09:00)
[2019-02-26] MEDS: FLUOXETINE HCL 20 MG CAPSULE PO SCH (08:15)
[2019-02-26] MEDS: FOLIC ACID 1 MG TABLET PO SCH (08:15)
[2019-02-26 14:00] VITALS: BP 138/64
[2019-02-26] MEDS: ENOXAPARIN 40 MG/0.4 ML SQ SCH (14:00)
[2019-02-26 14:40] VITALS: BP 128/82
== END 2019-02-26 16:20 | disposition home or self-care (01) | DRG 392 ==
LOC: ED 13:27 → EDIP 13:30 → 4EST 15:40
PROVIDERS: ADMIT Internal Medicine Infectious Disease; ATTEND Family Medicine
DX: K52.9 Noninfective gastroenteritis and colitis, unspecified (principal); E87.1 Hypo-osmolality and hyponatremia; E87.8 Other disorders of electrolyte and fluid balance, not elsewhere classified; F10.10 Alcohol abuse, uncomplicated; Y90.9 Presence of alcohol in blood, level not specified; F17.210 Nicotine dependence, cigarettes, uncomplicated; F41.9 Anxiety disorder, unspecified; I11.0 Hypertensive heart disease with heart failure; I50.9 Heart failure, unspecified; J43.9 Emphysema, unspecified; Z99.81 Dependence on supplemental oxygen
CPT/HCPCS: 36415; 84145; 96365; 96375; 99291; J7620; 71045; 80048; 80053; 80069; 80307; 81001; 82607; 83540; 83550; 83605; 83735; 83880; 83930; 83935; 84295; 84300; 84550; 85025; 87040; 87077; 87086; 87186; 93005; 93306; 94640; G0378; J0610; J0696; J1650; J3480; J7060; J3475; J7030; J7050

== ENCOUNTER 2019-11-09 21:09 | Inpatient (IN) | payer MEDICARE, OTHER ==
[~2019-11-09] VITALS: Ht 170.2 cm; Wt 71.2 kg
[~2019-11-09 21:09] MED LIST changes: +FLUO20CA23 PO; -FLUO20CA8 PO
[2019-11-09] MEDS ORDERED: SODIUM CHLORIDE 0.9% 1,000ML IVBOLUS ONE (21:30)
[2019-11-09] MEDS ORDERED: PROMETHAZINE 25 MG/ML, 1ML IM ONE (21:30)
[2019-11-09] MEDS ORDERED: SODIUM CHLORIDE FLUSH 10ML SYR IVF ONE (21:30)
[2019-11-09] MEDS ORDERED: MORPHINE SULFATE 4 MG/ML, 1ML IVPush PRN (21:30)
[2019-11-09 21:33] LABS: BASOPHILS # (AUTO) 0.01 x10^3/uL (0-0.1); BASOPHILS % (AUTO) 0 % (0-1); EOSINOPHILS # (AUTO) 0.02 x10^3/uL (0-0.4); EOSINOPHILS % (AUTO) 0 % (1-7); LYMPHOCYTES # (AUTO) 0.68 x10^3/uL (1-3.4); LYMPHOCYTES % (AUTO) 11 % (22-44); MD NO; MEAN CORPUSCULAR HEMOGLOBIN 33.4 pg (27.0-34.8); MEAN CORPUSCULAR HGB CONC 34.2 g/dL (32.4-35.8); MEAN CORPUSCULAR VOLUME 97.8 fL (80-100); MEAN PLATELET VOLUME 7.7 fL (7.4-10.4); MONOCYTES % (AUTO) 12 % (2-9); NEUTROPHILS # (AUTO) 4.66 x10^3/uL (1.8-6.8); NEUTROPHILS % (AUTO) 77 % (42-75); PLATELET COUNT 265 x10^3/uL (130-400); RED BLOOD COUNT 3.35 x10^6/uL (3.82-5.3); RED CELL DISTRIBUTION WIDTH 13.3 % (9.6-15.2)
[2019-11-09 21:45] LABS: ALANINE AMINOTRANSFERASE 86 U/L (12-78); ALBUMIN 3.9 g/dL (3.4-5.0); CALCIUM 9.5 mg/dL (8.5-10.1); CHLORIDE 75 mmol/L (98-107); CREATININE 0.59 mg/dL (0.55-1.02)
[2019-11-09] MEDS ORDERED: PROMETHAZINE 25 MG/ML, 1ML ONE (21:45)
[2019-11-09 21:50] LABS: ALKALINE PHOSPHATASE 109 U/L (45-117); BILIRUBIN,TOTAL 0.9 mg/dL (0.2-1.0); TOTAL PROTEIN 7.5 g/dL (6.4-8.2); TROPONIN I < 0.015 ng/mL (0.000-0.045)
[2019-11-09 21:53] LABS: ANION GAP 17 mmol/L (5-15)
[2019-11-09] MEDS ORDERED: LORazepam 2 MG/ML, 1ML IVPush ONE (22:00)
[2019-11-09] MEDS ORDERED: MORPHINE SULFATE 4 MG/ML, 1ML ONE (22:01)
[2019-11-09] MEDS ORDERED: LORazepam 2 MG/ML, 1ML ONE (22:01)
[2019-11-09] MEDS ORDERED: SODIUM CHLORIDE 0.9% 1,000 ML IV ONE (22:01)
--- NOTE | 2019-11-09 22:42 | NUR ---
Report given to admission RN
--- NOTE | 2019-11-09 23:00 | NUR ---
Hospitalist at bedside
[2019-11-09] MEDS ORDERED: POTASSIUM CHLORIDE 20 MEQ, MAGNESIUM SULFATE 2 GM, THIAMINE 200 MG, MVI ADULT 10 ML, FO... IV SCH (23:11)
[2019-11-09 23:30] VITALS: BP 110/58
[2019-11-09] MEDS ORDERED: ACETAMINOPHEN 325 MG TABLET PO PRN (23:30)
[2019-11-09] MEDS ORDERED: LORazepam 2 MG/ML, 1ML IV PRN ×5 (23:30)
[2019-11-09] MEDS ORDERED: morphine SULFATE 10 MG/ML, 1ML IVPush PRN (23:30)
[2019-11-09] MEDS ORDERED: hydrALAzine 20 MG/ML, 1ML IVPush PRN (23:30)
[2019-11-09] MEDS ORDERED: TRAZODONE 50MG TABLET PO PRN (23:30)
[2019-11-09] MEDS ORDERED: PROMETHAZINE 25 MG/ML, 1ML IM PRN (23:30)
[2019-11-09] MEDS ORDERED: ONDANSETRON 2MG/ML, 2ML IVPush PRN (23:30)
[2019-11-09] MEDS ORDERED: ALBUTEROL HFA 90 MCG/SPRAY INH PRN (23:30)
[2019-11-10] MEDS: ENOXAPARIN 40 MG/0.4 ML SQ SCH ×2 (00:12→23:05)
[2019-11-10 01:04] LABS: ANION GAP 10 mmol/L (5-15); CALCIUM 9.4 mg/dL (8.5-10.1); CHLORIDE 79 mmol/L (98-107); CREATININE 0.63 mg/dL (0.55-1.02)
[2019-11-10] MEDS ORDERED: SODIUM CHLORIDE 0.9% 1,000 ML IV ONE (02:00)
[2019-11-10 05:34] LABS: ALANINE AMINOTRANSFERASE 67 U/L (12-78); ALBUMIN 3.2 g/dL (3.4-5.0); ANION GAP 10 mmol/L (5-15); CALCIUM 8.6 mg/dL (8.5-10.1); CHLORIDE 84 mmol/L (98-107); CREATININE 0.52 mg/dL (0.55-1.02)
[2019-11-10 05:36] LABS: BASOPHILS # (AUTO) 0.02 x10^3/uL (0-0.1); BASOPHILS % (AUTO) 0 % (0-1); EOSINOPHILS % (AUTO) 0 % (1-7); LYMPHOCYTES % (AUTO) 12 % (22-44); MD NO; MEAN CORPUSCULAR HEMOGLOBIN 33.3 pg (27.0-34.8); MEAN CORPUSCULAR HGB CONC 33.5 g/dL (32.4-35.8); MEAN CORPUSCULAR VOLUME 99.4 fL (80-100); MEAN PLATELET VOLUME 8.4 fL (7.4-10.4); MONOCYTES # (AUTO) 0.63 x10^3/uL (0.2-0.8); MONOCYTES % (AUTO) 11 % (2-9); NEUTROPHILS # (AUTO) 4.49 x10^3/uL (1.8-6.8); NEUTROPHILS % (AUTO) 77 % (42-75); PLATELET COUNT 207 x10^3/uL (130-400); RED BLOOD COUNT 2.97 x10^6/uL (3.82-5.3); RED CELL DISTRIBUTION WIDTH 13.4 % (9.6-15.2)
[2019-11-10 05:37] LABS: ALKALINE PHOSPHATASE 89 U/L (45-117); BILIRUBIN,TOTAL 0.9 mg/dL (0.2-1.0); TOTAL PROTEIN 6.1 g/dL (6.4-8.2)
[2019-11-10] MEDS: CARVEDILOL 3.125 MG TABLET PO SCH ×2 (06:36→15:11)
[2019-11-10 07:22] VITALS: BP 111/74
[2019-11-10] MEDS: LOSARTAN 100 MG TAB PO SCH (08:33)
[2019-11-10] MEDS: FLUOXETINE HCL 20 MG CAPSULE PO SCH (08:33)
[2019-11-10 08:49] LABS: MICROSCOPIC AUTO
[2019-11-10] MEDS: TEMPLATE NON-FORMULARY MED. (Tiotropium Br/Olodaterol HCl (Stiolto Respimat Inhal Spray) 2 INH SCH (09:00)
[2019-11-10] MEDS: ALBUTEROL-IPRATROPIUM MDI INH INH SCH ×2 (09:00→20:21)
[2019-11-10 09:11] LABS: ANION GAP 8 mmol/L (5-15); CALCIUM 8.4 mg/dL (8.5-10.1); CHLORIDE 88 mmol/L (98-107); CREATININE 0.65 mg/dL (0.55-1.02)
[2019-11-10 09:48] LABS: AMPHETAMINE SCREEN, URINE Negative (Negative); BARBITURATE SCREEN, URINE Negative (Negative); BENZODIAZEPINE SCREEN, URINE Negative (Negative); CANNABINOID SCREEN, URINE Negative (Negative); COCAINE SCREEN, URINE Negative (Negative); METHADONE SCREEN, URINE Negative (Negative); OPIATE SCREEN, URINE Negative (Negative); SODIUM,URINE RANDOM 23 mmol/L
[2019-11-10 09:57] LABS: OSMOLALITY,URINE 185 mOsm/kg (500-850)
[2019-11-10] MEDS: SODIUM CHLORIDE 1 GM TABLET PO SCH ×2 (10:10→18:02)
[2019-11-10] MEDS: THIAMINE 100MG TABLET PO SCH (10:11)
[2019-11-10] MEDS: MULTIVITAMIN 1 TABLET PO SCH (10:11)
[2019-11-10] MEDS: CYANOCOBALAMIN 1,000 MCG TABLET PO SCH (10:11)
[2019-11-10] MEDS: CHLORDIAZEPOXIDE 25 MG CAPSULE PO SCH ×3 (12:38→20:21)
[2019-11-10 13:37] VITALS: BP 82/52
[2019-11-10] MEDS: SODIUM CHLORIDE 0.45% 1,000 ML IV SCH (15:55)
[2019-11-10 16:43] LABS: ANION GAP 7 mmol/L (5-15); CHLORIDE 90 mmol/L (98-107); CREATININE 0.59 mg/dL (0.55-1.02)
[2019-11-10 17:38] LABS: ANION GAP 9 mmol/L (5-15); CALCIUM 8.9 mg/dL (8.5-10.1); CHLORIDE 90 mmol/L (98-107)
[2019-11-10 17:41] LABS: CREATININE 0.62 mg/dL (0.55-1.02)
[2019-11-10 19:28] VITALS: BP 96/59
[2019-11-10 20:22] LABS: ANION GAP 7 mmol/L (5-15); CALCIUM 8.7 mg/dL (8.5-10.1); CHLORIDE 93 mmol/L (98-107); CREATININE 0.74 mg/dL (0.55-1.02)
[2019-11-11] VITALS (7 sets, daily range): BP systolic 88–117; BP diastolic 46–69
[2019-11-11 01:34] LABS: ANION GAP 8 mmol/L (5-15); CALCIUM 8.3 mg/dL (8.5-10.1); CHLORIDE 92 mmol/L (98-107); CREATININE 0.52 mg/dL (0.55-1.02)
[2019-11-11 05:03] LABS: ANION GAP 6 mmol/L (5-15); CALCIUM 8.4 mg/dL (8.5-10.1); CHLORIDE 93 mmol/L (98-107)
[2019-11-11 05:06] LABS: CREATININE 0.51 mg/dL (0.55-1.02)
[2019-11-11] MEDS: SODIUM CHLORIDE 0.45% 1,000 ML IV SCH (05:12)
[2019-11-11] MEDS: CARVEDILOL 3.125 MG TABLET PO SCH ×2 (05:13→17:02)
[2019-11-11] MEDS: CHLORDIAZEPOXIDE 25 MG CAPSULE PO SCH ×4 (05:13→21:12)
[2019-11-11 06:06] LABS: CLOSTRIDIUM DIFFICILE ANTIGEN NEGATIVE; CLOSTRIDIUM DIFFICILE TOXIN NEGATIVE (Negative)
[2019-11-11] MEDS: LOSARTAN 100 MG TAB PO SCH (08:24)
[2019-11-11] MEDS: TEMPLATE NON-FORMULARY MED. (Tiotropium Br/Olodaterol HCl (Stiolto Respimat Inhal Spray) 2 INH SCH (08:25)
[2019-11-11] MEDS: MULTIVITAMIN 1 TABLET PO SCH (08:25)
[2019-11-11] MEDS: THIAMINE 100MG TABLET PO SCH (08:25)
[2019-11-11] MEDS: CYANOCOBALAMIN 1,000 MCG TABLET PO SCH (08:25)
[2019-11-11] MEDS: FLUOXETINE HCL 20 MG CAPSULE PO SCH (08:25)
[2019-11-11] MEDS: ALBUTEROL-IPRATROPIUM MDI INH INH SCH ×2 (08:26→21:11)
[2019-11-11 08:27] LABS: ANION GAP 7 mmol/L (5-15); CALCIUM 8.7 mg/dL (8.5-10.1); CHLORIDE 94 mmol/L (98-107); CREATININE 0.58 mg/dL (0.55-1.02)
[2019-11-11] MEDS ORDERED: LOPERAMIDE 2 MG CAPSULE PO ONE (21:00)
[2019-11-11] MEDS: CEFDINIR 300 MG CAPSULE PO SCH (21:11)
[2019-11-11] MEDS: ENOXAPARIN 40 MG/0.4 ML SQ SCH (22:36)
[2019-11-12] VITALS (7 sets, daily range): BP systolic 91–106; BP diastolic 52–70
[2019-11-12] MEDS: CARVEDILOL 3.125 MG TABLET PO SCH (05:17)
[2019-11-12] MEDS: CHLORDIAZEPOXIDE 25 MG CAPSULE PO SCH ×3 (05:22→16:00)
[2019-11-12 05:50] LABS: ANION GAP 5 mmol/L (5-15); CALCIUM 8.9 mg/dL (8.5-10.1); CHLORIDE 96 mmol/L (98-107); CREATININE 0.54 mg/dL (0.55-1.02)
[2019-11-12] MEDS: CYANOCOBALAMIN 1,000 MCG TABLET PO SCH (08:10)
[2019-11-12] MEDS: MULTIVITAMIN 1 TABLET PO SCH (08:10)
[2019-11-12] MEDS: FLUOXETINE HCL 20 MG CAPSULE PO SCH (08:10)
[2019-11-12] MEDS: THIAMINE 100MG TABLET PO SCH (08:10)
[2019-11-12] MEDS: TEMPLATE NON-FORMULARY MED. (Tiotropium Br/Olodaterol HCl (Stiolto Respimat Inhal Spray) 2 INH SCH (08:10)
[2019-11-12] MEDS: ALBUTEROL-IPRATROPIUM MDI INH INH SCH (08:10)
[2019-11-12] MEDS: CEFDINIR 300 MG CAPSULE PO SCH (08:10)
[2019-11-12] MEDS ORDERED: CEFD300C37 PO (11:38)
[2019-11-12] MEDS ORDERED: CHLO10CA6 PO (11:38)
[2019-11-12] MEDS ORDERED: THIA100T67 PO (11:38)
[2019-11-12] MEDS ORDERED: ENOX40SY4 SQ (11:38)
[2019-11-12] MEDS ORDERED: CYAN-27 PO (11:38)
[2019-11-12] MEDS ORDERED: MULT-449 PO (11:38)
[2019-11-12] MEDS ORDERED: TRAZ50TA66 PO (11:38)
== END 2019-11-12 16:17 | DRG 641 ==
LOC: ED 21:39 → EDIP 22:32 → 5SO 23:22
PROVIDERS: ADMIT Family Medicine; ATTEND Internal Medicine
PROC: 0T9B70Z Drainage of Bladder with Drainage Device, Via Natural or Artificial Opening (ICD-10-PCS; principal; 2019-11-09)
DX: E87.1 Hypo-osmolality and hyponatremia (principal); F10.239 Alcohol dependence with withdrawal, unspecified; J96.10 Chronic respiratory failure, unspecified whether with hypoxia or hypercapnia; N39.0 Urinary tract infection, site not specified; F13.20 Sedative, hypnotic or anxiolytic dependence, uncomplicated; E86.1 Hypovolemia; J44.9 Chronic obstructive pulmonary disease, unspecified; I50.9 Heart failure, unspecified; I11.0 Hypertensive heart disease with heart failure; R74.0 Nonspecific elevation of levels of transaminase and lactic acid dehydrogenase [LDH]; D64.9 Anemia, unspecified; R19.7 Diarrhea, unspecified; E86.0 Dehydration; F32.4 Major depressive disorder, single episode, in partial remission; G62.9 Polyneuropathy, unspecified; K70.9 Alcoholic liver disease, unspecified; Z80.3 Family history of malignant neoplasm of breast; Z87.891 Personal history of nicotine dependence; Z99.81 Dependence on supplemental oxygen
CPT/HCPCS: 36415; 74022; 80048; 80053; 80307; 81001; 82570; 83690; 83735; 83880; 83930; 83935; 84100; 84300; 84443; 84484; 85025; 87077; 87086; 87186; 87324; 87635; 93005; 96372; 99291; G0378; J1650; J2550; J3411; J3475; J3480; J7042; J2060; J2270; J7030

== ENCOUNTER 2020-03-12 01:03 | Emergency (ER) | payer MEDICARE, OTHER ==
[~2020-03-12] VITALS: Ht 172.7 cm; Wt 70.0 kg
[~2020-03-12 01:03] MED LIST changes: +CEFD300C37 PO; +CHLO10CA6 PO; +CYAN-27 PO; +ENOX40SY4 SQ; +MULT-449 PO; -NICO-487 TD; +NICO-587 TD; +THIA100T67 PO; +TRAZ50TA66 PO
--- NOTE | 2020-03-12 01:03 | NUR ---
INITIAL PT CONTACT. PT PRESENTS TO THE ED VIA EMS C/O GENERALIZED WEAKNESS, FAILURE TO THRIVE AND "APPARENTLY DRINKING TOO MUCH ETOH AND NOT ENOUGH WATER". PT STATES SHE HAS HAD MULTIPLE FALLS IN THE PAST FEW DAYS, PT ALSO STATES HER "PRIMARY CAREGIVER HAS BEEN DIAGNOSED WITH COVID SO THEY HAVENT BEEN COMING AROUND OR HELPING ME OUT, I DONT HAVE ANY COVID SYMPTOMS THOUGH. I JUST HAVENT BEEN ABLE TO GET OUT OF BED AND I HAVE BEEN DRINKING ABOUT 5-7 GLASSES OF WINE A DAY, NOT MUCH WATER THOUGH". PT WAS RECENTLY SEEN AT [facility] FOR DE[facility], FAILURE TO THRIVE AND UTI, HOSPITALIZED FOR A 3 DAYS AND D/C HOME WITH ABX, COMPLIANT WITH MEDICATION PER PT. PT TRANSFERED TO ED [place], SITTING UPRIGHT NAD, VSS. PT ON 2L O2 VIA NASAL CANNULA AT HOME FOR COPD. PT REQUESTS A PURE WICK BE PLACED. CALL LIGHT AND PERSONAL BELONGINGS WITHIN REACH.
[2020-03-12] MEDS ORDERED: SODIUM CHLORIDE FLUSH 10ML SYR IVF ONE (01:30)
[2020-03-12 01:43] LABS: BASOPHILS % (AUTO) 2 % (0-1); EOSINOPHILS % (AUTO) 1 % (1-7); LYMPHOCYTES % (AUTO) 30 % (22-44); MEAN CORPUSCULAR HEMOGLOBIN 32.4 pg (27.0-34.8); MEAN CORPUSCULAR HGB CONC 32.7 g/dL (32.4-35.8); MEAN PLATELET VOLUME 7.4 fL (7.4-10.4); MONOCYTES % (AUTO) 17 % (2-9); NEUTROPHILS % (AUTO) 50 % (42-75); PLATELET COUNT 311 x10^3/uL (130-400); RED BLOOD COUNT 3.07 x10^6/uL (3.82-5.3); RED CELL DISTRIBUTION WIDTH 17.9 % (9.6-15.2)
[2020-03-12 01:50] LABS: MD NO
[2020-03-12 01:58] LABS: ALANINE AMINOTRANSFERASE 65 U/L (12-78); ANION GAP 4 mmol/L (5-15); CHLORIDE 102 mmol/L (98-107); CREATININE 0.52 mg/dL (0.55-1.02)
[2020-03-12 02:03] LABS: ALKALINE PHOSPHATASE 100 U/L (45-117); BILIRUBIN,TOTAL 0.4 mg/dL (0.2-1.0); TROPONIN I < 0.015 ng/mL (0.000-0.045)
--- NOTE | 2020-03-12 02:30 | NUR ---
STRAIGHT CATH PERFORMED WITH STERILE TECHNIQUE PER MD ORDER. CLEANSED AREA PER POLICY. PT TOLERATED WELL. PT DENIES ANY ADDITIONAL NEEDS AT THIS TIME. URINE SAMPLE WALKED TO LAB. NO ADDITIONAL NEEDS AT THIS TIME. CALL LIGHT AND PERSONAL BELONGINGS WITHIN REACH.
--- NOTE | 2020-03-12 03:05 | NUR ---
PT SITTING UPRIGHT ON GURNEY, ABLE TO DOZE OFF. RESTING COMFORTABLY WITH EYES CLOSED. WARM BLANKET PROVIDED PER REQUEST. PT DENIES ANY ADDITIONAL NEEDS AT THIS TIME. CALL LIGHT AND PERSONAL BELONGINGS WITHIN REACH.
[2020-03-12 03:18] LABS: MICROSCOPIC INDICATED
[2020-03-12 04:34] VITALS: BP 142/62
== END 2020-03-12 05:03 | disposition home or self-care (01) ==
LOC: ED 04:06
DX: K70.30 Alcoholic cirrhosis of liver without ascites (principal); F10.120 Alcohol abuse with intoxication, uncomplicated; R53.1 Weakness; R94.31 Abnormal electrocardiogram [ECG] [EKG]; I11.0 Hypertensive heart disease with heart failure; I50.9 Heart failure, unspecified; J44.9 Chronic obstructive pulmonary disease, unspecified; Y90.9 Presence of alcohol in blood, level not specified
CPT/HCPCS: 36415; 71045; 80053; 80320; 81001; 84484; 85025; 87077; 87086; 87186; 93005; 99285; G0480

== ENCOUNTER 2020-07-04 03:42 | Emergency (ER) | payer MEDICARE, OTHER ==
[~2020-07-04] VITALS: Ht 157.5 cm; Wt 50.0 kg
--- NOTE | 2020-07-04 03:54 | NUR ---
PT BIB [facility], C/O GROUND LEVEL FALL, BUT PT STATES SHE DIDN'T INJURE HERSELF. ON EMS ARRIVAL TO PICK PT UP FROM HOME, SHE STATES HER COMPLAINT IS HER FEET ARE SWOLLEN, AND SHE IS CONSTIPATED, AND STATES SHE HASN'T BEEN ABLE TO MAKE STOOL FOR 5 DAYS. MD ORDERS RECEIVED.
--- NOTE | 2020-07-04 04:06 | NUR ---
12 LEAD EKG DONE. PT CALM AND COOPERATIVE, ON CR MONITOR, AND CANAL SUPERINTENDENT TO BEDSIDE TO DRAW BLOOD WELL. PT TOLERATED WELL.
--- NOTE | 2020-07-04 04:15 | NUR ---
PT ROLLED OVER TO XRAY FOR SOME XRAYS.
[2020-07-04 04:16] LABS: MEAN CORPUSCULAR HEMOGLOBIN 37.4 pg (27.0-34.8); MEAN PLATELET VOLUME 7.9 fL (7.4-10.4); PLATELET COUNT 237 x10^3/uL (130-400); RED BLOOD COUNT 2.76 x10^6/uL (3.82-5.3); RED CELL DISTRIBUTION WIDTH 16.5 % (9.6-15.2)
[2020-07-04 04:24] LABS: ALANINE AMINOTRANSFERASE 116 U/L (12-78); ALBUMIN 2.8 g/dL (3.4-5.0); ANION GAP 8 mmol/L (5-15); CALCIUM 8.4 mg/dL (8.5-10.1); CHLORIDE 93 mmol/L (98-107)
[2020-07-04 04:29] LABS: ALKALINE PHOSPHATASE 258 U/L (45-117); BILIRUBIN,TOTAL 1.3 mg/dL (0.2-1.0); CREATININE 0.32 mg/dL (0.55-1.02); TOTAL PROTEIN 6.6 g/dL (6.4-8.2); TROPONIN I < 0.015 ng/mL (0.000-0.045)
[2020-07-04 04:34] LABS: MD YES
[2020-07-04 04:36] LABS: BAND#(MANUAL) 0.13 x10^3/uL; BANDS%(MANUAL) 2 % (0-7); LYMPH#(MANUAL) 0.33 x10^3/uL (1-3.4); LYMPHS% (MANUAL) 5 % (22-44); MONOS% (MANUAL) 6 % (2-9); MYELOCYTES# (MANUAL) 0.07 x10^3/uL (0-0); MYELOCYTES% (MANUAL) 1 % (0-0); SEG#(MANUAL) 5.68 x10^3/uL (1.8-6.8); SEGS% (MANUAL) 86 % (42-75)
[2020-07-04 04:44] LABS: ANISOCYTOSIS 2+; TARGET CELLS 1+
[2020-07-04 04:45] LABS: TOXIC GRAN 1+
[2020-07-04 04:46] LABS: <PLATELET ESTIMATE> ADEQUATE; <PLT MORPHOLOGY> NORMAL PLT MORPH
--- NOTE | 2020-07-04 05:01 | NUR ---
PT BACK FROM XRAY AND IN NO ACUTE DISTRESS.
--- NOTE | 2020-07-04 05:24 | NUR ---
PT SLEEPING, IN NO ACUTE DISTRESS, RELAYS THAT SHE FEELS NO PAIN AT THE MOMENT, AND IS JUST TIRED. PT ON CR MONITOR, SIDERAILS UP X2 AND CALL LIGHT WITHIN REACH.
--- NOTE | 2020-07-04 06:46 | NUR ---
REPORT AND CARE TO VICKIE MERINO
[2020-07-04 07:01] VITALS: BP 119/53
--- NOTE | 2020-07-04 07:17 | NUR ---
IV removed with tip intact. Patient given discharge instructions and prescription and they have confirmed that they understand the instructions. Taxi voucher provided and taxi called. Patient ambulatory with use of walker from ED to taxi.
== END 2020-07-04 07:18 | disposition home or self-care (01) ==
LOC: ED 07:14
DX: K70.10 Alcoholic hepatitis without ascites (principal); R60.0 Localized edema; K59.00 Constipation, unspecified; K52.9 Noninfective gastroenteritis and colitis, unspecified; R94.31 Abnormal electrocardiogram [ECG] [EKG]; Z87.891 Personal history of nicotine dependence; J43.9 Emphysema, unspecified; I10 Essential (primary) hypertension
CPT/HCPCS: 36415; 74022; 80053; 83690; 83880; 84484; 85025; 93005; 99285; 99406